=== PATIENT | female | born 1985 | race Caucasian/White ===

== ENCOUNTER → 2016-04-22 | Outpatient (CLI) | payer OTHER | END | disposition home or self-care (01) | LOC: RAD 12:23 | DX: Z34.90 Encounter for supervision of normal pregnancy, unspecified, unspecified trimester (principal); Z3A.31 31 weeks gestation of pregnancy | CPT/HCPCS: 76811 ==

== ENCOUNTER 2016-06-10 02:26 | Inpatient (IN) | payer OTHER ==
[~2016-06-10] VITALS: Ht 175.3 cm; Wt 76.2 kg
[2016-06-10] VITALS (9 sets, daily range): BP systolic 98–131; BP diastolic 47–67
[2016-06-10 03:00] LABS: BASOPHIL COUNT 0.1 K/uL (0-0.1); EOSINOPHIL (%) 0.7 % (0-5); EOSINOPHIL COUNT 0.1 K/uL (0-0.3); HEMATOCRIT 38.2 % (36.0-46.0); IMMATURE GRANULOCYTE (%) 0.4 % (0.0-0.7); LYMPHOCYTE COUNT 2.1 K/uL (1.0-2.8); MCH 26.7 PG (29.0-34.0); MCHC 33.8 G/DL (30.0-36.0); MCV 79.1 FL (83-99); MEAN PLAT.VOLUME 12.5 uM^3 (9.5-12.4); MONOCYTE (%) 8.8 % (3-12); PLATELET COUNT 182 K/uL (156-360); RBC DIS.WIDTH-CV 13.3 % (11.8-14.6); RBC DIS.WIDTH-SD 37.6 % (39-53); RED BLOOD COUNT 4.83 M/uL (3.80-5.20); WHITE BLOOD COUNT 11.3 K/uL (4.1-10.2)
[2016-06-11 05:40] LABS: BASOPHIL COUNT 0.1 K/uL (0-0.1); EOSINOPHIL (%) 1.1 % (0-5); EOSINOPHIL COUNT 0.1 K/uL (0-0.3); HEMATOCRIT 34.5 % (36.0-46.0); IMMATURE GRANULOCYTE (%) 0.5 % (0.0-0.7); IMMATURE GRANULOCYTE COUNT 0.1 K/uL; INSTRUMENT ABS NEUTROPHIL CT 9.2 K/uL; LYMPHOCYTE COUNT 2.3 K/uL (1.0-2.8); MCHC 32.5 G/DL (30.0-36.0); MEAN PLAT.VOLUME 12.9 uM^3 (9.5-12.4); MONOCYTE (%) 8.5 % (3-12); MONOCYTE COUNT 1.1 K/uL (0-0.8); NEUTROPHIL (%) 71.9 % (45-76); NEUTROPHIL COUNT 9.2 K/uL (1.8-6.4); PLATELET COUNT 150 K/uL (156-360); RBC DIS.WIDTH-CV 13.6 % (11.8-14.6); RBC DIS.WIDTH-SD 39.6 % (39-53); RED BLOOD COUNT 4.31 M/uL (3.80-5.20); WHITE BLOOD COUNT 12.8 K/uL (4.1-10.2)
[2016-06-11 07:42] VITALS: BP 115/56
[2016-06-11 15:02] VITALS: BP 106/63
[2016-06-11 23:00] VITALS: BP 108/54
[2016-06-12 07:21] VITALS: BP 116/54
[2016-06-12] MEDS ORDERED: BREAST PUMP MC (10:59)
== END 2016-06-12 15:41 | disposition home or self-care (01) | DRG 775 ==
LOC: LDRP-OP → 2WEST 02:27 → LDRP-OP 07-02 11:24
PROVIDERS: Advanced Practice Midwife
DX: O70.1 Second degree perineal laceration during delivery (principal); Z3A.39 39 weeks gestation of pregnancy; Z37.0 Single live birth
CPT/HCPCS: 85025; J0595; J7120